=== PATIENT | female | born 1970 | race Two or more races ===

== ENCOUNTER 2024-11-24 19:44 | Emergency (ER) | payer OTHER ==
[~2024-11-24] VITALS: Ht 152.4 cm; Wt 54.0 kg
[2024-11-24] MEDS: KETOROLAC TROMETHAMINE INJ 30 MG/ML VIAL IM ONE (20:03)
[2024-11-24] MEDS ORDERED: IBUP-1953 PO (21:54)
[2024-11-24 22:09] VITALS: BP 121/73; TEMP 97.8; O2SAT 98
== END 2024-11-24 22:10 | disposition home or self-care (01) ==
LOC: ER 19:49
DX: M25.521 Pain in right elbow (principal); M54.2 Cervicalgia; M25.562 Pain in left knee; Z90.710 Acquired absence of both cervix and uterus; V43.52XA Car driver injured in collision with other type car in traffic accident, initial encounter; Y93.89 Activity, other specified; Y92.488 Other paved roadways as the place of occurrence of the external cause; Y99.8 Other external cause status
CPT/HCPCS: 99284; 96372; 72050; 73080; 71100; 73590 ×2; J1885